=== PATIENT | male | born 1935 | race Caucasian/White ===

== ENCOUNTER → 2018-01-07 | Outpatient (CLI) | payer MEDICARE, OTHER ==
[~2018-01-07] MED LIST: ASPIRIN ENTERIC81 M1 PO; DICLOFENAC SOD75 MG PO; FLOMAX0.4 MG PO; HYDR12.5C PO; LABETALOL HYDR200 MG PO; LABETALOL100 MG PO; LIPITOR10 MG PO; LIPITOR20 MG PO; NORVASC2.5 MG PO; NORVASC5 MG PO; PRILOSEC20 M1 PO; THERAGRAN1 TA2 PO; VITAMIN D1000 IU PO; VITAMIN D2000 IU PO; VOLTAREN25 MG PO; ZOFRAN ODT4 MG SL
== END | disposition home or self-care (01) ==
LOC: RAD 16:07
DX: M50.322 Other cervical disc degeneration at C5-C6 level (principal); M51.36 Other intervertebral disc degeneration, lumbar region; M41.86 Other forms of scoliosis, lumbar region

== ENCOUNTER 2019-01-31 11:21 | Emergency (ER) | payer MEDICARE ==
[~2019-01-31] VITALS: Ht 175.2 cm; Wt 99.8 kg
--- NOTE | ~2019-01-31 | EKG ---
[place], [place] ELECTROCARDIOGRAM REPORT NAME: ELDER WALL UNIT #: [id number] ROOM: DOCTOR: EPIPHANY DRAFT REPORT BIRTHDATE: [birth year] [facility] Test Date: 2019-01-31 Test Time: 11:25:01 Pat Name: ELDER WALL Department: Room: ER-3 Gender: M Sow Manager: Keysha Salas : 1935 Requested By: RUPESH GREEN Order Number: [id number] Reading MD: Christy Allen Measurements Intervals [place] Rate: 82 P: 14 [place]: 180 QRS: 8 QRSD: 89 T: -18 QT: 394 QTc: 461 Interpretive Statements Sinus rhythm Anterior infarct, age indeterminate Electronically Signed On 02-02-2019 11:43:20 PDT by Christy Allen CM:EKGRPT:ELECTROCARDIOGRAM REPORT 1125 [id number] RUPESH DENNEY DRAFT REPORT RUPESH GREEN MD
--- NOTE | ~2019-01-31 | EKG ---
[place], [place] ELECTROCARDIOGRAM REPORT NAME: ELDER WALL UNIT #: [id number] ROOM: DOCTOR: EPIPHANY DRAFT REPORT BIRTHDATE: [birth year] [facility] Test Date: 2019-01-31 Test Time: 14:25:53 Pat Name: ELDER WALL Department: Room: Gender: Supervisor [employer]: Suellen Duval : 1935 Requested By: RUPESH GREEN Order Number: [id number] Reading MD: Christy Allen Measurements Intervals [place] Rate: 80 P: 10 [place]: 180 QRS: 15 QRSD: 80 T: -26 QT: 491 QTc: 567 Interpretive Statements Sinus rhythm Borderline T abnormalities, anterior leads Prolonged QT interval Baseline wander in lead(s) V3 No previous ECG available for comparison Electronically Signed On 02-02-2019 11:44:47 PDT by Christy Allen CM:EKGRPT:ELECTROCARDIOGRAM REPORT 1425 1144 RUPESH DENNEY DRAFT REPORT RUPESH GREEN MD
[2019-01-31 11:52] LABS: BASO % 0.5 % (0.0-1.0); EOS # 0.2 10*3/uL (0.0-0.4); EOS % 2.5 % (1.0-4.0); HEMATOCRIT 23.2 % (42.0-52.0); HEMOGLOBIN 7.5 g/dl (14.0-18.0); LYMPH # 1.6 10*3/uL (1.3-4.4); LYMPH % 21.5 % (27.0-41.0); MEAN CELL VOLUME 95.5 fl (80.0-94.0); MEAN CORPUSCULAR HGB 30.9 pg (27.0-31.0); MEAN CORPUSCULAR HGB CONC 32.3 g/dl (33.0-37.0); MEAN PLATELET VOLUME 10.6 fl (9.6-12.3); MONO # 0.9 10*3/uL (0.1-1.0); MONO % 11.5 % (3.0-9.0); NEUT # 4.8 10*3/uL (2.3-7.9); NEUT % 63.7 % (47.0-73.0); PLATELET COUNT AUTOMATED 276 10*3/uL (130-400); RED BLOOD COUNT 2.43 10*6/uL (4.50-5.90); RED CELL DISTRI WIDTH 13.2 % (0-14.5); WHITE BLOOD COUNT 7.6 10*3/uL (4.8-10.8)
[2019-01-31 12:07] LABS: ACT PARTIAL THROMBO TIME 26.5 SECONDS (20.0-32.1)
[2019-01-31 12:13] LABS: CREATININE 1.38 mg/dL (0.70-1.30); POTASSIUM 3.7 mmol/L (3.5-5.1); TOTAL PROTEIN 6.3 gm/dL (6.4-8.2)
[2019-01-31 12:19] LABS: TROPONIN I 0.164 ng/ml (<0.045)
[2019-01-31] MEDS ORDERED: IRON325 M1 PO (15:39)
== END 2019-01-31 16:08 | disposition home or self-care (01) ==
LOC: ED 11:21
PROVIDERS: Emergency Medicine
DX: D64.9 Anemia, unspecified (principal); R00.2 Palpitations; I48.91 Unspecified atrial fibrillation; I10 Essential (primary) hypertension; K21.9 Gastro-esophageal reflux disease without esophagitis; E78.2 Mixed hyperlipidemia; F17.200 Nicotine dependence, unspecified, uncomplicated; Z98.61 Coronary angioplasty status; Z86.73 Personal history of transient ischemic attack (TIA), and cerebral infarction without residual deficits; Z79.899 Other long term (current) drug therapy

== ENCOUNTER 2021-07-18 11:43 | Emergency (ER) | payer MEDICARE ==
[~2021-07-18 11:43] MED LIST changes: +IRON325 M1 PO
[2021-07-18 12:09] LABS: BASO # 0.1 10*3/uL (0.0-0.1); BASO % 0.6 % (0.0-1.0); EOS # 0.3 10*3/uL (0.0-0.4); EOS % 2.3 % (1.0-4.0); HEMATOCRIT 36.7 % (42.0-52.0); LYMPH # 1.7 10*3/uL (1.3-4.4); LYMPH % 14.1 % (27.0-41.0); MEAN CELL VOLUME 91.3 fl (80.0-94.0); MEAN CORPUSCULAR HGB 29.1 pg (27.0-31.0); MEAN CORPUSCULAR HGB CONC 31.9 g/dl (33.0-37.0); MEAN PLATELET VOLUME 10.7 fl (9.6-12.3); MONO # 1.1 10*3/uL (0.1-1.0); MONO % 9.7 % (3.0-9.0); NEUT # 8.6 10*3/uL (2.3-7.9); NEUT % 72.8 % (47.0-73.0); PLATELET COUNT AUTOMATED 237 10*3/uL (130-400); RED BLOOD COUNT 4.02 10*6/uL (4.50-5.90); RED CELL DISTRI WIDTH 12.4 % (0-14.5); WHITE BLOOD COUNT 11.8 10*3/uL (4.8-10.8)
[2021-07-18 12:26] LABS: ALBUMIN 3.3 gm/dl (3.1-4.5); CREATININE 1.66 mg/dL (0.70-1.30); POTASSIUM 4.3 mmol/L (3.5-5.1); TOTAL PROTEIN 6.7 gm/dL (6.4-8.2)
[2021-07-18] MEDS ORDERED: LEVOFLOXACIN750 M2 PO (14:14)
== END 2021-07-18 14:27 | disposition home or self-care (01) ==
LOC: ED 11:43
PROVIDERS: Student in an Organized Health Care Education/Training Program
DX: J18.9 Pneumonia, unspecified organism (principal); Z79.899 Other long term (current) drug therapy; Z87.891 Personal history of nicotine dependence

== ENCOUNTER 2023-05-28 11:16 | Emergency (ER) | payer MEDICARE ==
[~2023-05-28] VITALS: Ht 175.2 cm; Wt 95.3 kg
[~2023-05-28 11:16] MED LIST changes: +LEVOFLOXACIN750 M2 PO
[2023-05-28 12:32] LABS: BASO % 0.5 % (0.0-1.0); EOS # 0.1 10*3/uL (0.0-0.4); EOS % 1.7 % (1.0-4.0); HEMATOCRIT 35.7 % (42.0-52.0); LYMPH # 1.7 10*3/uL (1.3-4.4); LYMPH % 26.6 % (27.0-41.0); MEAN CELL VOLUME 93.9 fl (80.0-94.0); MEAN CORPUSCULAR HGB 31.1 pg (27.0-31.0); MEAN CORPUSCULAR HGB CONC 33.1 g/dl (33.0-37.0); MEAN PLATELET VOLUME 10.7 fl (9.6-12.3); MONO # 0.6 10*3/uL (0.1-1.0); MONO % 8.6 % (3.0-9.0); NEUT # 4.1 10*3/uL (2.3-7.9); NEUT % 62.4 % (47.0-73.0); PLATELET COUNT AUTOMATED 231 10*3/uL (130-400); RED CELL DISTRI WIDTH 12.8 % (0-14.5); WHITE BLOOD COUNT 6.5 10*3/uL (4.8-10.8)
[2023-05-28 12:43] LABS: ACT PARTIAL THROMBO TIME 33.3 SECONDS (20.0-32.1)
[2023-05-28 12:56] LABS: ALKALINE PHOSPHATASE 51 U/L (46-116); BUN 22 mg/dl (9-23); CHLORIDE 105 mmol/L (98-107); LIPASE 23 U/L (12-53); POTASSIUM 4.7 mmol/L (3.4-5.1); SGPT/ALT 12 U/L (5-49); TOTAL PROTEIN 6.3 gm/dL (6.0-8.0)
== END 2023-05-28 14:56 | disposition home or self-care (01) ==
LOC: ED 11:16
PROVIDERS: Emergency Medicine
DX: K59.00 Constipation, unspecified (principal); I10 Essential (primary) hypertension; M19.90 Unspecified osteoarthritis, unspecified site; Z96.653 Presence of artificial knee joint, bilateral; Z98.42 Cataract extraction status, left eye; Z98.41 Cataract extraction status, right eye; Z87.891 Personal history of nicotine dependence